=== PATIENT | male | born 1980 | race Caucasian/White ===

== ENCOUNTER 2018-04-15 16:34 | Emergency (ER) | payer MEDICARE, MEDICAID, SELFPAY ==
[2018-04-15 16:35] VITALS: BP 118/69; PULSE 99; RESP 16; TEMP 36.8; O2SAT 99; BMI 22.8
--- NOTE | 2018-04-15 16:57 | ED.DCSUM_ITS ---
- ER Visit Summary Date of Service: 04/15/18 Chief Complaint: Bilateral eye drainage. Poison stephanie. History of Present Illness: The patient is a 38 M/2-3 days he has had drainage in both eyes worse in the morning. Denies pain. Denies trauma. Does not wear glasses or contacts. 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 Patient also states for the past several days he has had poison stephanie in his right arm. Physical Examination: Well-appearing middle-age male. Vital signs are stable afebrile. Pupils round reactive light. Slightly injected. He does have discharge in both eyes consistent with pinkeye. No signs of secondary bacterial infection. Pupils round reactive light. Extra motions are intact. No signs of trauma. No orbital or periorbital cellulitis. Neck nontender. Lungs clear to auscultation bilaterally. Heart regular rate and rhythm no murmur. Abdomen soft nontender. Moving all 4 extremities. Neurovascular intact. Right arm has contact dermatitis consistent with poison stephanie. Involves most of the right forearm. Test Results: None Emergency Department Course and Treatment: Treated with prednisone 40 g a day for the poison stephanie. A history is ophthalmic ointment for the pinkeye. Treatment Plan: [] Disposition: Discharge Impression: Acute bilateral viral conjunctivitis Right arm poison stephanie This note was generated with [employer] dictation software. It may contain incorrect words, spelling, and punctuation that were not noted in review of the chart prior to signing ED Disposition - Plan for ED Patient: Chief Complaint: Eye Problem Referrals: Jacob Marie Chi, MD [Primary Care Provider] -
--- NOTE | 2018-04-15 16:57 | ED.DEP ---
ED Disposition - Plan for ED Patient: Disposition: Home or Assisted Living Chief Complaint: Eye Problem Instructions: What Is Conjunctivitis?, ED Dermatitis Poison Liseth Prescriptions: Prednisone [Deltasone] 40 mg PO DAILY 7 Days tab Referrals: Jacob Marie Chi, MD [Primary Care Provider] - Additional Instructions: Warm compresses each morning and at night to remove all of the drainage Apply bacitracin ointment twice a day to both eyes. Prednisone 40 g a day for 1 week for the poison liseth.
[2018-04-15] MEDS: predniSONE 20 MG Tablet 60 MG PO (17:05)
== END 2018-04-15 17:11 | disposition home or self-care (01) ==
PROVIDERS: Emergency Provider Emergency Medicine; Family Provider Family Medicine Geriatric Medicine; PCP Family Medicine Geriatric Medicine
DX: H10.33 Unspecified acute conjunctivitis, bilateral (principal); L23.7 Allergic contact dermatitis due to plants, except food; Z72.0 Tobacco use
CPT/HCPCS: 99283

== ENCOUNTER → 2018-06-13 16:37 | Outpatient (CLI) | payer MEDICARE, MEDICAID, SELFPAY ==
--- NOTE | 2018-06-13 16:45 | RAD_ITS ---
STUDY: X-RAY CHEST REASON FOR EXAM: Male, 38 years old. Shortness of breath. Low back pain. TECHNIQUE: PA and lateral views of the chest. COMPARISON: August 01, 2014 FINDINGS: The lungs are clear and expanded. There is no demonstrated pleural abnormality. Normal size heart. Normal mediastinum and xander. Normal visualized pulmonary arteries. Normal visualized aortic arch and descending thoracic aorta. Normal visualized thoracic spine. Normal visualized ribs, clavicles, and shoulders. There is no demonstrated abnormality of the visualized soft tissue structures of the upper abdomen. RAD/Chest PA and Lateral IMPRESSION: Normal x-ray examination of the chest. Electronically Signed: Norris Jay MD at 21:50 EDT , Service support ,
--- NOTE | 2018-06-13 16:50 | RAD_ITS ---
STUDY: X-RAY - LUMBAR SPINE REASON FOR EXAM: Male, 38 years old. Low back pain TECHNIQUE: 3 view(s) of the lumbar spine were obtained. COMPARISON: None FINDINGS: Normal lumbar lordosis. There is no substantial scoliosis. There is a normal alignment of the vertebrae. Normal vertebral bodies and endplates. Normal disc space heights. There is no demonstrated fracture. The soft tissue structures are unremarkable. RAD/Lumbar Spine 2 or 3 Views IMPRESSION: Normal x-ray examination of the lumbar spine. Electronically Signed: Norris Jay MD at 21:53 EDT , Service support ,
== END ==
PROVIDERS: Family Provider Family Medicine Geriatric Medicine; PCP Family Medicine Geriatric Medicine; Visit Provider Family Medicine Geriatric Medicine
DX: M54.2 Cervicalgia (principal); R06.02 Shortness of breath; R63.4 Abnormal weight loss
CPT/HCPCS: 71046; 72100

== ENCOUNTER → 2024-11-15 | Outpatient (CLI) | payer MEDICARE, MEDICAID, SELFPAY ==
--- NOTE | 2024-11-15 12:32 | EKG12_ITS ---
Test Reason : ROUTINE Blood Pressure : */* mmHG Vent. Rate : 79 BPM Atrial Rate : 79 BPM P-R Int : 174 ms QRS Dur : 82 ms QT Int : 370 ms P-R-T Axes : 44 91 49 degrees QTcB Int : 424 ms Normal sinus rhythm Rightward axis Borderline ECG Confirmed by JOCELYNN HARMON, TRAN ([id number]), commercial production editor BRANDON BARRAZA ([id number]) on 11/16/2024 1:07:49 PM Referred By: Rob Salgado Confirmed By: TRAN CABEZAS MD
[2024-11-15 13:19] LABS: Hematocrit 38.8 % (40-54); Hemoglobin 13.3 g/dL (13.0-16.5); Mean Corp Hgb Conc 34.3 g/dL (32-36); Mean Corpuscular Volume 87.6 fL (80-94); Mean Platelet Vol. 10.5 fl (6.2-12.0); Platelet Count 215 K/mm3 (150-450); RBC Distribution Width CV 12.7 % (11.6-14.6); RBC Distribution Width SD 40.7 fl (35.1-43.9); Red Blood Count 4.43 M/mm3 (4.6-6.2); White Blood Count 11.9 K/mm3 (4.4-11.0)
[2024-11-15 13:49] LABS: ALB/GLOB Ratio 0.9 RATIO (0.9-2.4); AST(SGOT) 21 U/L (15-37); Alanine Aminotransfer ALT/SGPT 34 U/L (16-61); Albumin, Serum 3.4 g/dL (3.2-5.0); Alkaline Phosphatase 103 U/L (45-117); Anion Gap 7 (5-15); BUN 11 mg/dL (7-18); BUN/Creat Ratio 13.4 RATIO (10-20); Calcium,Total 9.2 mg/dL (8.5-10.1); Chloride 104 mmol/L (98-107); Creatinine, Serum 0.82 mg/dL (0.70-1.30); EST Glomerular Filtration Rate 108 mL/min (>60); Est Glom Filt Rate - Afr Amer 131 mL/min (>60); Globulin 3.9 g/dL (2.2-4.2); Glucose 104 mg/dL (74-106); Potassium 3.8 mmol/L (3.5-5.1); Protein, Total 7.3 g/dL (6.4-8.2); Sodium Level 138 mmol/L (136-145)
== END | disposition home or self-care (01) ==
LOC: PSN 12:29
PROVIDERS: PCP Family Medicine Geriatric Medicine; Referring Provider Nurse Practitioner Psychiatric/Mental Health
DX: F90.9 Attention-deficit hyperactivity disorder, unspecified type (principal); F31.9 Bipolar disorder, unspecified
CPT/HCPCS: 36415; 80053; 85027; 93005